=== PATIENT | female | born 1965 | race Caucasian/White ===

== ENCOUNTER 2024-05-03 16:21 | Emergency (ER) | payer OTHER, SELFPAY ==
[2024-05-03 16:23] VITALS: BP 151/92; PULSE 71; RESP 20; TEMP 36.6; O2SAT 99
--- NOTE | 2024-05-03 18:04 | ED.URI ---
HPI - URI/Sore Throat General Chief Complaint: Ear Stated Complaint: Sinus/Ears Irritation Time Seen by Provider: 05/03/24 18:04 Source: patient, RN notes reviewed and old records reviewed Mode of arrival: ambulatory Limitations: no limitations History of Present Illness HPI Narrative: Patient presents with 1 month history of sinus pain and pressure, 2 weeks of purulent drainage. She reports that the past couple of days she has had some drainage from the ears as well, she denies any loss of hearing as a result. She denies any fever, chills, sweats. She does affirm some sleepiness and lack of energy. She has been taking [id number] remedies such as Zyrtec and Tylenol with minimal results. She voices no other concerns or complaints today. Related Data Home Medications Medication Instructions Recorded Confirmed amlodipine 2.5 mg tablet 2.5 mg PO DAILY 05/03/24 05/03/24 Allergies Allergy/AdvReac Type Severity Reaction Status Date / Time No Known Allergies Allergy Verified 05/03/24 18:14 Review of Systems Review of Systems: All systems reviewed & are unremarkable except as noted in HPI and below Constitutional: Constitutional: Reports as per HPI, Reports no additional constitutional complaints, Reports daytime sleepiness, Reports headache(s) and Reports lethargy ENT: Reports system reviewed and no additional complaints, except as documented, Reports as per HPI, Reports nasal congestion, Reports nasal discharge, Reports sinus pain and Reports sinus pressure Cardiovascular: Cardiovascular: Reports as per HPI and Reports no additional cardiovascular complaints Respiratory: Respiratory: Reports as per HPI and Reports no additional respiratory complaints Gastrointestinal: Gastrointestinal: Reports no additional gastrointestinal complaints PMFSH Comments At the time of my signature, I reviewed and agree with the nursing past medical, surgical, social, and family history. There is no relevant family history pertinent to the patient complaint. Exam Const: General: cooperative, no acute distress, alert and awake Orientation/consciousness: oriented to person, oriented to place and oriented to time HENMT: Head: normal to inspection Ears: Abnormal EAC present erythema, edema and otic discharge and unable to visualize TM bilaterally Face and sinus: sinus tenderness frontal Throat: postnasal drainage Resp: Effort & Inspection: normal respiratory effort and able to speak in complete sentences Auscultation: clear to auscultation bilaterally, no crackles, no rales, no rhonchi and no wheezes Cardio: Palpation: normal PMI Rate: regular rate Rhythm: regular rhythm Heart sounds: S1 normal heart sound present and S2 normal heart sound present Neuro: General: oriented to person, oriented to place and oriented to time Cranial nerves: Yes CN's II-XII intact bilaterally Psych: Appearance: grossly normal Thought process: Normal thought process present Insight: Good insight present (Psych) Judgement: Good judgement present (Psych) Course Course Level of Care: Express Care Visit Vital Signs Vital signs: Vital Signs Temperature 98 F 05/03/24 16:23 Pulse Rate 71 05/03/24 16:23 Respiratory Rate 05/03/24 16:23 Blood Pressure 151/92 H 05/03/24 16:23 Pulse Oximetry 99 05/03/24 16:23 Oxygen Delivery Room Air 05/03/24 16:23 Temperature 98 F 05/03/24 16:23 Pulse Rate 71 05/03/24 16:23 Respiratory Rate 05/03/24 16:23 Blood Pressure 151/92 H 05/03/24 16:23 Pulse Oximetry 99 05/03/24 16:23 Oxygen Delivery Room Air 05/03/24 16:23 Reviewed MDM - URI/Sore Throat MDM Narrative Medical decision making narrative: Exam consistent with otitis externa and sinusitis. Treat with oral and otic antibiotics. Follow with primary care provider. Blood pressure is elevated, please discuss with primary care provider. Discharge instructions reviewed with patient, as well as provided in writ
--- NOTE | 2024-05-03 18:22 | PC.NURSE ---
AT 1815 patient came out of the room upset and went to the front desk administrator complaining that she has not been seen by a provider and that she has been here for over 1 hour and thinks she was forgotten and she knows she was here before these other people. RN went back into room with patient and explained that the Provider sees/evaluates the patient based on when they checked in and at times by acuity(SOB,CHEST pain etc...). I assured her that the Provider has NOT forgotten her and that she would be seen very soon as the Provider informed the staff she was the next patient to be seen. Patient accepted this explanation and said that's all I wanted to know .
== END 2024-05-03 18:21 | disposition home or self-care (01) ==
PROVIDERS: Emergency Provider Nurse Practitioner Family
DX: J32.9 Chronic sinusitis, unspecified (principal); H60.93 Unspecified otitis externa, bilateral
CPT/HCPCS: 99203; G0463